=== PATIENT | female | born 1975 | race Caucasian/White ===

== ENCOUNTER 2019-09-13 21:01 | Emergency (ER) | payer MEDICAID ==
[~2019-09-13] VITALS: Ht 160 cm; Wt 94.8 kg
[2019-09-13 21:43] VITALS: BP 157/85; Ht 160 cm; Wt 94.8 kg
== END 2019-09-13 23:24 | disposition home or self-care (01) ==
LOC: ED 21:01
DX: J03.90 Acute tonsillitis, unspecified (principal); S05.02XA Injury of conjunctiva and corneal abrasion without foreign body, left eye, initial encounter; X58.XXXA Exposure to other specified factors, initial encounter; Y93.89 Activity, other specified; Y92.89 Other specified places as the place of occurrence of the external cause; Y99.8 Other external cause status